=== PATIENT | female | born 1990 | race Two or more races ===

== ENCOUNTER 2024-03-28 09:13 | Observation (INO) | payer SELFPAY ==
[2024-03-28 09:22] VITALS: BP 124/66; BMI 21.5
[2024-03-28 09:32] LABS: Urine Albumin Negative (Neg - Trace); Urine Bilirubin Negative (Negative); Urine Character Clear (Clear); Urine Color Yellow; Urine Glucose Negative (Negative); Urine Ketone Negative (Negative); Urine Leukocyte Negative (Negative); Urine Nitrite Negative (Negative); Urine Occult Blood Negative (Negative); Urine Urobilinogen Negative (Neg - 1+)
[2024-03-28 10:43] LABS: Amphetamines Negative (Negative); Barbiturates Negative (Negative); Benzodiazepines Negative (Negative); Buprenorphine Negative (Negative); Cocaine Negative (Negative); Marijuana Negative (Negative); Methadone Negative (Negative); Methamphetamines Negative (Negative); Opiates Negative (Negative); Phencyclidine Negative (Negative); Tricyclic Antidepressants Negative (Negative)
== END 2024-03-28 13:00 | disposition home or self-care (01) ==
LOC: LDRP 09:13
PROVIDERS: ADMITTING PHYSICIAN Obstetrics & Gynecology
DX: M54.50 Low back pain, unspecified (principal); R10.9 Unspecified abdominal pain; O09.32 Supervision of pregnancy with insufficient antenatal care, second trimester; Z3A.20 20 weeks gestation of pregnancy; S80.11XA Contusion of right lower leg, initial encounter; W22.03XA Walked into furniture, initial encounter; Y93.01 Activity, walking, marching and hiking; Y92.003 Bedroom of unspecified non-institutional (private) residence as the place of occurrence of the external cause; B19.20 Unspecified viral hepatitis C without hepatic coma; Z60.3 Acculturation difficulty
CPT/HCPCS: 76805; 80306; 81003; G0378